=== PATIENT | female | born 1960 | race Caucasian/White ===

== ENCOUNTER → 2016-07-09 | Outpatient (CLI) | payer OTHER ==
--- NOTE | 2016-07-09 12:56 | RAD ---
CT of the chest without contrast, 07/09/2016: History: Pulmonary nodules Noncontrast scans were obtained as requested. No previous CT studies are available at this time for comparison purposes. There is a small calcified granuloma in the right lung base posteriorly. There is a smooth, 5 mm noncalcified nodule in the posterior aspect of the right lower lobe as seen on image 261 of series #5. There is a 4 mm smooth noncalcified nodule in the lateral aspect of the right lower lobe as seen on image 240 of series #5. There is a 5 mm triangular shaped noncalcified nodule abutting the superior medial aspect of the oblique fissure in the right upper lobe as seen on image 137 of series #5. Perifissural nodules such as this are commonly intrapulmonary lymph nodes. There is a 4 mm smooth noncalcified nodule in the lateral aspect of the left upper lobe as seen on image 161 of series 5. A small flat perifissural nodule is seen in the left lower lobe on image 215 of series #5. Several other very tiny scattered noncalcified nodules are seen such as the 2 mm smooth nodule noted in the lateral aspect of the left lower lobe on image 278 of series #5. There are a few scattered linear opacities in both lungs compatible with scars. The thoracic aorta is unremarkable. A tiny AP window calcification is noted. No mediastinal adenopathy is seen. A couple of tiny medullary calcifications are noted in the left kidney. There appears to be a small cortical cyst arising from the lateral aspect of the left kidney, incompletely delineated on these scans. A 6.6 cm cyst is present posteriorly in the right lobe of the liver. IMPRESSION: 1. Multiple small bilateral noncalcified pulmonary nodules as delineated above. Comparison with previous studies if they can be located would be most helpful in establishing stability. Depending on the patient's risk factors, CT follow-up may be prudent in excluding a neoplastic etiology. 2. Incidental CT findings as described above. PQRS Compliance Statement: One or more of the following individualized dose reduction techniques were utilized for this examination: 1. Automated exposure control 2. Adjustment of the mA and/or kV according to patient size 3. Use of iterative reconstruction technique
== END | disposition home or self-care (01) ==
LOC: CT 10:59
PROVIDERS: ATTEND Nurse Practitioner Primary Care
DX: R91.1 Solitary pulmonary nodule (principal)
CPT/HCPCS: 71250